=== PATIENT | female | born 1995 | race Two or more races ===

== ENCOUNTER 2023-04-13 11:12 | Emergency (ER) | payer OTHER ==
[~2023-04-13] VITALS: Ht 160 cm; Wt 65.8 kg
== END 2023-04-13 15:34 | disposition home or self-care (01) ==
LOC: ER 11:12
DX: S09.8XXA Other specified injuries of head, initial encounter (principal); W18.39XA Other fall on same level, initial encounter; Y93.B9 Activity, other involving muscle strengthening exercises; Y92.89 Other specified places as the place of occurrence of the external cause; Y99.1 Military activity; S19.89XA Other specified injuries of other specified part of neck, initial encounter; Z88.6 Allergy status to analgesic agent
CPT/HCPCS: 36415; 70450; 72125; 96372; 99284; J2360; J3301